=== PATIENT | male | born 1960 | race Caucasian/White ===

== ENCOUNTER 2022-06-13 22:24 | Emergency (ER) | payer OTHER ==
[~2022-06-13] VITALS: Ht 177.8 cm; Wt 113.0 kg
[2022-06-14 00:28] VITALS: BP 142/84
== END 2022-06-14 03:26 | disposition home or self-care (01) ==
LOC: ER 22:24
DX: E11.649 Type 2 diabetes mellitus with hypoglycemia without coma (principal); R53.1 Weakness; T38.3X5A Adverse effect of insulin and oral hypoglycemic [antidiabetic] drugs, initial encounter; Y92.89 Other specified places as the place of occurrence of the external cause; R03.0 Elevated blood-pressure reading, without diagnosis of hypertension; I48.20 Chronic atrial fibrillation, unspecified; Z79.4 Long term (current) use of insulin; Z79.01 Long term (current) use of anticoagulants
CPT/HCPCS: 82962; 99283

== ENCOUNTER 2025-03-30 13:10 | Inpatient (IN) | payer OTHER ==
[~2025-03-30] VITALS: Ht 180.3 cm; Wt 146.5 kg
[2025-03-30 13:57] LABS: BASOPHILS % 0.7 % (0.0-2.0); EOSINOPHILS % 0.2 % (0.0-5.0); HEMATOCRIT. 49.2 % (42.0-52.0); HEMOGLOBIN. 14.8 g/dL (14.0-18.0); LYMPHOCYTES % 16.2 % (20.0-50.0); MEAN CORPUSCULAR HEMOGLOBIN 26.9 pg (28.0-32.0); MEAN CORPUSCULAR HGB CONC 30.1 g/dL (31.0-37.0); MEAN CORPUSCULAR VOLUME 89.3 fL (80.0-94.0); MEAN PLATELET VOLUME 9.3 fl (7.4-10.4); MONOCYTES % 7.4 % (2.0-8.0); NEUTROPHILS % 75.5 % (40.0-76.0); PLATELET 201 x1000/uL (130-400); RED BLOOD CELL COUNT 5.51 mill/uL (4.7-6.1); RED CELL DISTRIBUTION WIDTH 26.1 % (11.6-14.6)
[2025-03-30 14:03] LABS: ADD RBC MORPHOLOGY YES; DIFFERENTIAL COMMENT 1
[2025-03-30 14:07] LABS: CARBON DIOXIDE 18 mEq/L (21-32); CHLORIDE 118 mEq/L (98-107); POTASSIUM 5.7 mEq/L (3.5-5.1); SODIUM 151 mEq/L (136-145)
[2025-03-30 14:08] LABS: CALCIUM 10.1 mg/dL (8.7-10.4)
[2025-03-30 14:13] LABS: CREATININE 3.1 mg/dL (0.6-1.3); GLUCOSE 162 mg/dL (70-105); UREA NITROGEN BLOOD 49 mg/dL (9-23)
[2025-03-30 14:15] LABS: CREATINE KINASE 208 IU/L (46-171)
[2025-03-30 14:31] LABS: ANISOCYTOSIS 3+; PLATELET ESTIMATE NORMAL
[2025-03-30 14:33] LABS: TROPONIN I HIGH SENSITIVITY 642 ng/L (3.0-53)
[2025-03-30 14:45] LABS: INR 1.5; PROTHROMBIN TIME 15.1 sec (9.6-11.0)
[2025-03-30] MEDS: DEXTROSE 50% WATER 50ML SYRINGE IV ONE (14:56)
[2025-03-30] MEDS: SODIUM BICARBONATE 8.4% 50MEQ/50ML SYR IV ONE (14:57)
[2025-03-30] MEDS: CLOPIDOGREL 75MG TABLET PO ONE (14:57)
[2025-03-30] MEDS: SODIUM ZIRCONIUM CYCLOSILICATE 10GM/PACKET PO ONE (14:57)
[2025-03-30] MEDS: ASPIRIN 325MG EC TABLET PO ONE (14:57)
[2025-03-30] MEDS: FUROSEMIDE 100MG/10ML VIAL IV STA (14:57)
[2025-03-30] MEDS: INSULIN REGULAR (HUMULIN R) 1000UNITS/10ML VIAL IV ONE (14:58)
[2025-03-30] MEDS: ALBUTEROL (0.083%) 2.5MG/3ML NEB HHN ONE (16:05)
[2025-03-30 16:25] VITALS: PULSE 101; RESP 22; O2SAT 98
[2025-03-30] MEDS: ISOSORBIDE MONONITRATE 60MG TABLET SR 24HR PO ONE (17:48)
[2025-03-30 23:14] VITALS: BP 176/114; PULSE 92; RESP 16; TEMP 36.5
[2025-03-31] VITALS (11 sets, daily range): BP systolic 145–178; BP diastolic 99–132; PULSE 90–106; RESP 14–19; TEMP 36.2–36.6; O2SAT 93–100
[2025-03-31] MEDS ORDERED: DEXTROSE 50% WATER 50ML SYRINGE IV PRN (01:45)
[2025-03-31] MEDS ORDERED: DOCUSATE SODIUM 100MG CAPSULE PO PRN (01:45)
[2025-03-31] MEDS ORDERED: ACETAMINOPHEN 325MG TABLET PO PRN ×2 (01:45)
[2025-03-31] MEDS ORDERED: IPRATROPIUM/ALBUTEROL 0.5-3(2.5)MG/3ML NEB HHN PRN (01:45)
[2025-03-31] MEDS ORDERED: ONDANSETRON HCL 4MG/2ML INJ IV PRN (01:45)
[2025-03-31] MEDS: LABETALOL 5MG/ML 4ML INJ IV PRN (02:13)
[2025-03-31] MEDS: ENOXAPARIN 150MG/ML SYR SUBCUT SCH (02:50)
[2025-03-31 06:42] LABS: BASOPHILS % 0.8 % (0.0-2.0); EOSINOPHILS % 0.7 % (0.0-5.0); HEMATOCRIT. 44.1 % (42.0-52.0); HEMOGLOBIN. 13.1 g/dL (14.0-18.0); LYMPHOCYTES % 17.7 % (20.0-50.0); MEAN CORPUSCULAR HEMOGLOBIN 26.7 pg (28.0-32.0); MEAN CORPUSCULAR HGB CONC 29.7 g/dL (31.0-37.0); MEAN CORPUSCULAR VOLUME 89.8 fL (80.0-94.0); MEAN PLATELET VOLUME 9.2 fl (7.4-10.4); MONOCYTES % 6.6 % (2.0-8.0); NEUTROPHILS % 74.2 % (40.0-76.0); PLATELET 152 x1000/uL (130-400); RED BLOOD CELL COUNT 4.91 mill/uL (4.7-6.1); RED CELL DISTRIBUTION WIDTH 25.6 % (11.6-14.6); WHITE BLOOD COUNT 9.7 x1000/uL (4.5-11.0)
[2025-03-31 06:55] LABS: CHLORIDE 117 mEq/L (98-107); SODIUM 154 mEq/L (136-145)
[2025-03-31 06:56] LABS: CARBON DIOXIDE 23 mEq/L (21-32)
[2025-03-31 07:01] LABS: CREATININE 2.9 mg/dL (0.6-1.3); GLUCOSE 138 mg/dL (70-105); UREA NITROGEN BLOOD 52 mg/dL (9-23)
[2025-03-31 07:03] LABS: ALANINE AMINOTRANSFERASE 77 IU/L (10-49); ALBUMIN 3.9 g/dL (3.2-4.8); ASPARTATE AMINOTRANSFERASE 91 IU/L (<34); PROTEIN TOTAL 6.8 g/dL (6.0-8.3)
[2025-03-31 07:09] LABS: DIFFERENTIAL COMMENT 1
[2025-03-31 07:10] LABS: HEPATITIS B SURFACE ANTIGEN NEGATIVE (Negative)
[2025-03-31] MEDS: BLOOD SUGAR DIAGNOSTIC STRIP TEST SCH (07:30)
[2025-03-31 07:31] LABS: HEPATITIS C AB NON REACTIVE (Neg) (Negative)
[2025-03-31] MEDS: INSULIN LISPRO 100 UNITS/ML SUBCUT SCH (08:00)
[2025-03-31 08:36] LABS: POTASSIUM 3.4 mEq/L (3.5-5.1)
[2025-03-31 08:40] LABS: TROPONIN I HIGH SENSITIVITY 639 ng/L (3.0-53)
[2025-03-31 08:43] LABS: BG BASE EXCESS -4.3 mmol/L (-2.0-3.0); BG CARBOXYHEMOGLOBIN 1.4 % (0.5-1.5); BG DEOXYHEMOGLOBIN 1.3 % (0.0-5.0); BG FRACTION INSPIRED OXYGEN 42; BG HCO3 ACT 22.4 mmol/L (21.0-28.0); BG METHEMOGLOBIN 0.2 % (0.5-1.5); BG OXYGEN SATURATION 98.7 % (94.0-98.0); BG OXYHEMOGLOBIN 97.1 % (94.0-98.0); BG PCO2 47.6 mmHg (35.0-48.0); BG PH 7.291 (7.350-7.450); BG PO2 126.4 mmHg (83.0-108.0); BG SAMPLE SITE RIGHT RADIAL; BG TOTAL HEMOGLOBIN 13.2 g/dL (13.5-17.5); BG VENT MODE NASAL CANNULA
[2025-03-31] MEDS: AMLODIPINE 5MG TABLET PO SCH ×2 (09:31→18:43)
[2025-03-31] MEDS: DEXTROSE 5% WATER 1,000 ML IV SCH (17:38)
[2025-03-31 21:02] LABS: PHOSPHORUS 3.2 mg/dL (2.5-4.9)
[2025-03-31 21:05] LABS: TROPONIN I HIGH SENSITIVITY 343 ng/L (3.0-53)
[2025-03-31] MEDS: DILTIAZEM HCL 30MG TABLET PO SCH (21:43)
[2025-03-31] MEDS: HYDRALAZINE HCL 25MG TABLET PO SCH (21:43)
[2025-04-01] VITALS (13 sets, daily range): BP systolic 147–179; BP diastolic 91–116; PULSE 81–101; RESP 15–21; TEMP 35.4–36.4; O2SAT 90–98
[2025-04-01 06:05] LABS: BASOPHILS % 0.9 % (0.0-2.0); EOSINOPHILS % 3.8 % (0.0-5.0); HEMOGLOBIN. 12.4 g/dL (14.0-18.0); LYMPHOCYTES % 16.5 % (20.0-50.0); MEAN CORPUSCULAR HEMOGLOBIN 26.7 pg (28.0-32.0); MEAN CORPUSCULAR HGB CONC 30.2 g/dL (31.0-37.0); MEAN CORPUSCULAR VOLUME 88.5 fL (80.0-94.0); MEAN PLATELET VOLUME 9.2 fl (7.4-10.4); MONOCYTES % 7.1 % (2.0-8.0); NEUTROPHILS % 71.7 % (40.0-76.0); PLATELET 133 x1000/uL (130-400); RED BLOOD CELL COUNT 4.64 mill/uL (4.7-6.1); RED CELL DISTRIBUTION WIDTH 25.5 % (11.6-14.6); WHITE BLOOD COUNT 8.1 x1000/uL (4.5-11.0)
[2025-04-01 06:12] LABS: CHLORIDE 115 mEq/L (98-107); POTASSIUM 3.1 mEq/L (3.5-5.1); SODIUM 150 mEq/L (136-145)
[2025-04-01 06:13] LABS: CALCIUM 9.5 mg/dL (8.7-10.4); CARBON DIOXIDE 25 mEq/L (21-32)
[2025-04-01 06:18] LABS: CREATININE 2.5 mg/dL (0.6-1.3); GLUCOSE 150 mg/dL (70-105); TRIGLYCERIDE 87 mg/dL (0-150); UREA NITROGEN BLOOD 46 mg/dL (9-23)
[2025-04-01 06:19] LABS: LDL CHOLESTEROL 37 mg/dL (5-100)
[2025-04-01 06:20] LABS: CHOLESTEROL 78 mg/dL (<200); HDL CHOLESTEROL 24 mg/dL (>55)
[2025-04-01 06:22] LABS: THYROID STIMULATING HORMONE 0.86 uIU/mL (0.55-4.78)
[2025-04-01 06:30] LABS: DIFFERENTIAL COMMENT 1
[2025-04-01 06:31] LABS: ADD RBC MORPHOLOGY NO
[2025-04-01 06:45] LABS: TROPONIN I HIGH SENSITIVITY 273 ng/L (3.0-53)
[2025-04-01] MEDS: POTASSIUM CHLORIDE 20MEQ/PACKET PO SCH (11:10)
[2025-04-01] MEDS: FUROSEMIDE 40MG/4ML VIAL IVP SCH ×2 (15:25→21:00)
[2025-04-01] MEDS: DILTIAZEM HCL 30MG TABLET PO SCH (18:14)
[2025-04-01] MEDS: POTASSIUM CHLORIDE 20MEQ TABLET SR PO SCH (20:54)
[2025-04-01] MEDS ORDERED: POTASSIUM CHLORIDE 20MEQ TABLET SR PO SCH (21:00)
[2025-04-02] VITALS (11 sets, daily range): BP systolic 120–156; BP diastolic 75–108; PULSE 87–95; RESP 16–27; TEMP 35.6–36.4; O2SAT 93–99
[2025-04-02 06:23] LABS: BASOPHILS % 0.8 % (0.0-2.0); EOSINOPHILS % 3.1 % (0.0-5.0); HEMOGLOBIN. 12.8 g/dL (14.0-18.0); LYMPHOCYTES % 16.7 % (20.0-50.0); MEAN CORPUSCULAR HGB CONC 31.2 g/dL (31.0-37.0); MEAN CORPUSCULAR VOLUME 86.5 fL (80.0-94.0); MONOCYTES % 6.5 % (2.0-8.0); NEUTROPHILS % 72.9 % (40.0-76.0); PLATELET 146 x1000/uL (130-400); RED BLOOD CELL COUNT 4.74 mill/uL (4.7-6.1); RED CELL DISTRIBUTION WIDTH 25.1 % (11.6-14.6); WHITE BLOOD COUNT 8.1 x1000/uL (4.5-11.0)
[2025-04-02 06:33] LABS: DIFFERENTIAL COMMENT 1
[2025-04-02 06:38] LABS: CHLORIDE 114 mEq/L (98-107); POTASSIUM 3.5 mEq/L (3.5-5.1); SODIUM 152 mEq/L (136-145)
[2025-04-02 06:39] LABS: CALCIUM 9.9 mg/dL (8.7-10.4); CARBON DIOXIDE 28 mEq/L (21-32)
[2025-04-02 06:44] LABS: CREATININE 2.2 mg/dL (0.6-1.3); GLUCOSE 149 mg/dL (70-105); UREA NITROGEN BLOOD 40 mg/dL (9-23)
[2025-04-02 06:49] LABS: TROPONIN I HIGH SENSITIVITY 155 ng/L (3.0-53)
[2025-04-02] MEDS: POTASSIUM CHLORIDE 20MEQ TABLET SR PO SCH (08:54)
[2025-04-02] MEDS: EMPAGLIFLOZIN 10MG TABLET PO SCH (08:54)
[2025-04-02] MEDS ORDERED: [UNRECOGNIZED DRUG - CODE] SUBCUT (15:47)
[2025-04-02] MEDS ORDERED: FURO10VI3 IVP (15:47)
[2025-04-02] MEDS ORDERED: DILT30TA3 PO (15:47)
[2025-04-02] MEDS ORDERED: EMPA10TA PO (15:47)
[2025-04-02] MEDS ORDERED: HYDR25TA78 PO (15:47)
== END 2025-04-02 17:50 | disposition short-term general hospital (02) | DRG 291 ==
LOC: ER 13:34 → EDBEDREQTM 19:12 → EDBEDREQ 19:12 → ENRESERV 19:26 → 5EST 21:54
PROVIDERS: ADMIT Family Medicine Adult Medicine; ATTEND Family Medicine Adult Medicine
PROC: 5A09357 Assistance with Respiratory Ventilation, Less than 24 Consecutive Hours, Continuous Positive Airway Pressure (ICD-10-PCS; principal; 2025-04-02)
DX: I13.0 Hypertensive heart and chronic kidney disease with heart failure and stage 1 through stage 4 chronic kidney disease, or unspecified chronic kidney disease (principal); I50.21 Acute systolic (congestive) heart failure; J96.01 Acute respiratory failure with hypoxia; M62.82 Rhabdomyolysis; N17.9 Acute kidney failure, unspecified; E87.0 Hyperosmolality and hypernatremia; I31.39 Other pericardial effusion (noninflammatory); R79.89 Other specified abnormal findings of blood chemistry; E87.5 Hyperkalemia; G47.33 Obstructive sleep apnea (adult) (pediatric); E11.22 Type 2 diabetes mellitus with diabetic chronic kidney disease; N18.9 Chronic kidney disease, unspecified; R74.01 Elevation of levels of liver transaminase levels; E87.6 Hypokalemia; I48.91 Unspecified atrial fibrillation; I42.9 Cardiomyopathy, unspecified; I69.398 Other sequelae of cerebral infarction
CPT/HCPCS: 36415; 36600; 71045; 72170; 76770; 80048; 80053; 80061; 82375; 82550; 82805; 82962; 83036; 83735; 83880; 84100; 84443; 84484; 85025; 86705; 86850; 86900; 87340; 93005; 93306; 93923; 94070; 94640; 94660; 99285; A4606; J1650; J1815; J1940; J3490; J7070

== ENCOUNTER 2025-04-17 12:32 | Inpatient (IN) | payer OTHER ==
[~2025-04-17] VITALS: Ht 188 cm; Wt 119.1 kg
[~2025-04-17 12:32] MED LIST: DILT30TA3 PO; EMPA10TA PO; FURO10VI3 IVP; HYDR25TA78 PO; [UNRECOGNIZED DRUG - CODE] SUBCUT
[2025-04-17 13:58] LABS: ADD RBC MORPHOLOGY YES; DIFFERENTIAL COMMENT 1; EOSINOPHILS % 2.5 % (0.0-5.0); HEMATOCRIT. 32.7 % (42.0-52.0); HEMOGLOBIN. 10.3 g/dL (14.0-18.0); LYMPHOCYTES % 19.4 % (20.0-50.0); MEAN CORPUSCULAR HEMOGLOBIN 27.1 pg (28.0-32.0); MEAN CORPUSCULAR HGB CONC 31.6 g/dL (31.0-37.0); MEAN CORPUSCULAR VOLUME 85.8 fL (80.0-94.0); MONOCYTES % 7.8 % (2.0-8.0); NEUTROPHILS % 69.3 % (40.0-76.0); PLATELET 235 x1000/uL (130-400); RED BLOOD CELL COUNT 3.81 mill/uL (4.7-6.1); RED CELL DISTRIBUTION WIDTH 23.3 % (11.6-14.6); WHITE BLOOD COUNT 5.9 x1000/uL (4.5-11.0)
[2025-04-17 14:06] LABS: CARBON DIOXIDE 21 mEq/L (21-32); CHLORIDE 110 mEq/L (98-107); POTASSIUM 3.6 mEq/L (3.5-5.1); SODIUM 141 mEq/L (136-145)
[2025-04-17 14:12] LABS: ETHANOL BLOOD < 10 mg/dL (<10); GLUCOSE 74 mg/dL (70-105); TROPONIN I HIGH SENSITIVITY 23 ng/L (3.0-53); UREA NITROGEN BLOOD 20 mg/dL (9-23)
[2025-04-17 14:13] LABS: ACETAMINOPHEN < 2 ug/mL (10-30); ALANINE AMINOTRANSFERASE 31 IU/L (10-49); ALBUMIN 4.1 g/dL (3.2-4.8); ASPARTATE AMINOTRANSFERASE 27 IU/L (<34)
[2025-04-17 14:14] LABS: BILIRUBIN DIRECT 0.5 mg/dL (<=3.0); BILIRUBIN TOTAL 0.8 mg/dL (0.1-1.0); PROTEIN TOTAL 6.7 g/dL (6.0-8.3)
[2025-04-17 14:31] LABS: ANISOCYTOSIS 3+; GIANT PLATELETS FEW
[2025-04-17 14:32] LABS: HYPOCHROMASIA 1+; PLATELET ESTIMATE NORMAL
[2025-04-17 16:01] LABS: TROPONIN I HIGH SENSITIVITY 18 ng/L (3.0-53)
[2025-04-17] MEDS: FUROSEMIDE 40MG/4ML VIAL IVP STA (16:10)
[2025-04-17 20:00] VITALS: BP 128/75; PULSE 70; RESP 19; TEMP 36.4; O2SAT 100
[2025-04-17 21:35] VITALS: BP 128/75; PULSE 70; RESP 19; TEMP 36.5
[2025-04-17] MEDS ORDERED: ONDANSETRON HCL 4MG/2ML INJ IV PRN (23:30)
[2025-04-17] MEDS ORDERED: IPRATROPIUM/ALBUTEROL 0.5-3(2.5)MG/3ML NEB HHN PRN (23:30)
[2025-04-17] MEDS ORDERED: ACETAMINOPHEN 325MG TABLET PO PRN ×2 (23:30)
[2025-04-17] MEDS ORDERED: DEXTROSE 50% WATER 50ML SYRINGE IV PRN (23:45)
[2025-04-17] MEDS ORDERED: APIXABAN 5 MG TABLET PO SCH (23:45)
[2025-04-18] VITALS (8 sets, daily range): BP systolic 136–167; BP diastolic 89–106; PULSE 71–86; RESP 15–19; TEMP 36.1–36.6; O2SAT 95–100
[2025-04-18] MEDS ORDERED: DILTIAZEM HCL 30MG TABLET PO SCH
[2025-04-18 00:30] LABS: PHOSPHORUS 2.9 mg/dL (2.5-4.9)
[2025-04-18] MEDS: BLOOD SUGAR DIAGNOSTIC STRIP TEST SCH (07:20)
[2025-04-18] MEDS: INSULIN LISPRO 100 UNITS/ML SUBCUT SCH (07:50)
[2025-04-18] MEDS: FUROSEMIDE 40MG/4ML VIAL IV SCH (09:04)
[2025-04-18] MEDS: APIXABAN 5 MG TABLET PO SCH (09:04)
[2025-04-18] MEDS: IPRATROPIUM/ALBUTEROL 0.5-3(2.5)MG/3ML NEB HHN SCH (10:01)
[2025-04-18 10:21] LABS: BASOPHILS % 1.8 % (0.0-2.0); HEMATOCRIT. 33.3 % (42.0-52.0); HEMOGLOBIN. 10.6 g/dL (14.0-18.0); MEAN CORPUSCULAR HEMOGLOBIN 27.3 pg (28.0-32.0); MEAN CORPUSCULAR HGB CONC 31.8 g/dL (31.0-37.0); MEAN PLATELET VOLUME 9.2 fl (7.4-10.4); MONOCYTES % 7.1 % (2.0-8.0); NEUTROPHILS % 64.1 % (40.0-76.0); PLATELET 236 x1000/uL (130-400); RED BLOOD CELL COUNT 3.87 mill/uL (4.7-6.1); RED CELL DISTRIBUTION WIDTH 22.9 % (11.6-14.6); WHITE BLOOD COUNT 5.3 x1000/uL (4.5-11.0)
[2025-04-18 10:27] LABS: DIFFERENTIAL COMMENT 1
[2025-04-18 10:28] LABS: ADD RBC MORPHOLOGY NO
[2025-04-18 10:45] LABS: CREATINE KINASE MB FRACTION 2.9 ng/mL (0.5-3.6)
[2025-04-18 10:47] LABS: POTASSIUM 3.7 mEq/L (3.5-5.1)
[2025-04-18 10:53] LABS: CREATININE 1.9 mg/dL (0.6-1.3)
[2025-04-18 15:31] LABS: BG BASE EXCESS -6.1 mmol/L (-2.0-3.0); BG CARBOXYHEMOGLOBIN 0.7 % (0.5-1.5); BG DEOXYHEMOGLOBIN 4.3 % (0.0-5.0); BG FRACTION INSPIRED OXYGEN 28; BG HCO3 ACT 18.1 mmol/L (21.0-28.0); BG METHEMOGLOBIN 0.3 % (0.5-1.5); BG OXYGEN SATURATION 95.7 % (94.0-98.0); BG OXYHEMOGLOBIN 94.7 % (94.0-98.0); BG PCO2 31.5 mmHg (35.0-48.0); BG PH 7.378 (7.350-7.450); BG PO2 81.6 mmHg (83.0-108.0); BG SAMPLE SITE RIGHT RADIAL; BG TOTAL HEMOGLOBIN 11.1 g/dL (13.5-17.5); BG VENT MODE NASAL CANNULA
[2025-04-18] MEDS: CLONIDINE 0.1MG TABLET PO PRN (15:46)
[2025-04-18 17:08] LABS: CREATINE KINASE MB FRACTION 2.5 ng/mL (0.5-3.6)
== END 2025-04-18 19:43 | disposition short-term general hospital (02) | DRG 189 ==
LOC: ER 12:32 → EDBEDREQ 13:56 → 6WST 16:05 → EDBEDREQ 17:44
PROVIDERS: ADMIT Internal Medicine; ATTEND Internal Medicine
DX: J96.01 Acute respiratory failure with hypoxia (principal); G92.8 Other toxic encephalopathy; I50.23 Acute on chronic systolic (congestive) heart failure; I13.0 Hypertensive heart and chronic kidney disease with heart failure and stage 1 through stage 4 chronic kidney disease, or unspecified chronic kidney disease; J81.1 Chronic pulmonary edema; N17.9 Acute kidney failure, unspecified; E11.22 Type 2 diabetes mellitus with diabetic chronic kidney disease; N18.9 Chronic kidney disease, unspecified; J96.02 Acute respiratory failure with hypercapnia; R62.7 Adult failure to thrive; E11.9 Type 2 diabetes mellitus without complications; G47.33 Obstructive sleep apnea (adult) (pediatric); I48.91 Unspecified atrial fibrillation; Z68.33 Body mass index [BMI] 33.0-33.9, adult; Z79.01 Long term (current) use of anticoagulants; Z79.84 Long term (current) use of oral hypoglycemic drugs; Z79.899 Other long term (current) drug therapy; Z86.73 Personal history of transient ischemic attack (TIA), and cerebral infarction without residual deficits
CPT/HCPCS: 36415; 36600; 71045; 80048; 80076; 80307; 80320; 80329; 82375; 82550; 82553; 82805; 82962; 83036; 83735; 83880; 84100; 84484; 85025; 93005; 93970; 94640; 99291; A4606; J1940; G0480

== ENCOUNTER 2025-04-29 11:33 | Inpatient (IN) | payer MEDICARE, OTHER ==
[~2025-04-29] VITALS: Ht 177.8 cm; Wt 109.8 kg
[2025-04-29] MEDS: PANTOPRAZOLE SODIUM 40 MG/VIAL IV ONE (12:06)
[2025-04-29 12:24] LABS: BASOPHILS % 1.3 % (0.0-2.0); EOSINOPHILS % 1.7 % (0.0-5.0); HEMATOCRIT. 25.9 % (42.0-52.0); MEAN CORPUSCULAR HGB CONC 30.9 g/dL (31.0-37.0); MEAN CORPUSCULAR VOLUME 90.6 fL (80.0-94.0); MEAN PLATELET VOLUME 9.2 fl (7.4-10.4); MONOCYTES % 4.9 % (2.0-8.0); NEUTROPHILS % 66.1 % (40.0-76.0); PLATELET 164 x1000/uL (130-400); RED BLOOD CELL COUNT 2.86 mill/uL (4.7-6.1); RED CELL DISTRIBUTION WIDTH 22.7 % (11.6-14.6)
[2025-04-29 12:29] LABS: ADD RBC MORPHOLOGY YES; DIFFERENTIAL COMMENT 1
[2025-04-29 12:35] LABS: CHLORIDE 116 mEq/L (98-107); POTASSIUM 3.9 mEq/L (3.5-5.1); SODIUM 152 mEq/L (136-145)
[2025-04-29 12:36] LABS: CALCIUM 8.8 mg/dL (8.7-10.4); CARBON DIOXIDE 19 mEq/L (21-32)
[2025-04-29 12:40] LABS: TROPONIN I HIGH SENSITIVITY 23 ng/L (3.0-53)
[2025-04-29 12:41] LABS: CREATININE 1.6 mg/dL (0.6-1.3); ETHANOL BLOOD < 10 mg/dL (<10); GLUCOSE 177 mg/dL (70-105); UREA NITROGEN BLOOD 37 mg/dL (9-23)
[2025-04-29 12:43] LABS: ALANINE AMINOTRANSFERASE 10 IU/L (10-49); ASPARTATE AMINOTRANSFERASE 22 IU/L (<34); BILIRUBIN DIRECT 0.3 mg/dL (<=3.0); BILIRUBIN TOTAL 0.5 mg/dL (0.1-1.0); CREATINE KINASE 38 IU/L (46-171)
[2025-04-29 12:57] LABS: INR 1.6
[2025-04-29 13:04] LABS: LACTIC ACID 6.5 mmol/L (0.4-2.0)
[2025-04-29 13:18] LABS: ANISOCYTOSIS 3+; HYPOCHROMASIA 1+; PLATELET ESTIMATE NORMAL
[2025-04-29 17:07] LABS: BASOPHILS % 0.8 % (0.0-2.0); EOSINOPHILS % 0.7 % (0.0-5.0); HEMATOCRIT. 23.5 % (42.0-52.0); HEMOGLOBIN. 7.1 g/dL (14.0-18.0); LYMPHOCYTES % 20.1 % (20.0-50.0); MEAN CORPUSCULAR HEMOGLOBIN 27.2 pg (28.0-32.0); MEAN CORPUSCULAR HGB CONC 30.3 g/dL (31.0-37.0); MEAN CORPUSCULAR VOLUME 89.9 fL (80.0-94.0); MONOCYTES % 6.5 % (2.0-8.0); NEUTROPHILS % 71.9 % (40.0-76.0); PLATELET 154 x1000/uL (130-400); RED BLOOD CELL COUNT 2.61 mill/uL (4.7-6.1); RED CELL DISTRIBUTION WIDTH 22.5 % (11.6-14.6); WHITE BLOOD COUNT 9.1 x1000/uL (4.5-11.0)
[2025-04-29 17:08] LABS: ADD RBC MORPHOLOGY YES; DIFFERENTIAL COMMENT 1
[2025-04-29] MEDS ORDERED: HYDRALAZINE 20MG/ML VIAL IV PRN (17:15)
[2025-04-29] MEDS ORDERED: IPRATROPIUM/ALBUTEROL 0.5-3(2.5)MG/3ML NEB NEB PRN (17:15)
[2025-04-29] MEDS ORDERED: MORPHINE SULFATE 2 MG/ML INJ (NOT FOR IM USE) IV PRN (17:15)
[2025-04-29] MEDS ORDERED: ONDANSETRON HCL 4MG/2ML INJ IV PRN (17:15)
[2025-04-29] MEDS ORDERED: ACETAMINOPHEN 325MG TABLET PO PRN (17:15)
[2025-04-29] MEDS ORDERED: DILTIAZEM HCL 5MG/ML 5ML VIAL IV PRN (17:15)
[2025-04-29] MEDS ORDERED: NALOXONE HCL 0.4MG/ML VIAL IV PRN (17:30)
[2025-04-29] MEDS: FUROSEMIDE 40MG/4ML VIAL IVP SCH (17:55)
[2025-04-29 20:00] VITALS: BP 166/87; PULSE 72; RESP 19; TEMP 36.7; O2SAT 96
[2025-04-29 21:39] VITALS: BP 129/70; PULSE 85; RESP 19; TEMP 36.3
[2025-04-29 21:41] LABS: HEMATOCRIT 27.2 % (42.0-52.0); HEMOGLOBIN 8.4 g/dL (14.0-18.0)
[2025-04-30] VITALS: BP 156/77; PULSE 87; RESP 19; TEMP 36.3; O2SAT 99
[2025-04-30 04:00] VITALS: BP 149/85; PULSE 89; RESP 18; TEMP 36.9; O2SAT 96
[2025-04-30 08:08] VITALS: BP 158/84; PULSE 86; RESP 18; TEMP 36.6; O2SAT 96
[2025-04-30] MEDS: PANTOPRAZOLE SODIUM 40 MG/VIAL IV SCH (09:00)
[2025-04-30 11:55] VITALS: BP 142/68; PULSE 86; RESP 18; TEMP 36.8; O2SAT 96
[2025-04-30] MEDS: MAGNESIUM 2 G PREMIX 50 ML IV ONE (15:21)
[2025-04-30 16:00] VITALS: BP 139/84; PULSE 99; RESP 18; TEMP 36.5; O2SAT 98
[2025-04-30] MEDS: SUCRALFATE 1G TABLET PO SCH (17:39)
[2025-04-30 17:46] LABS: BASOPHILS % 1.1 % (0.0-2.0); EOSINOPHILS % 3.3 % (0.0-5.0); HEMATOCRIT. 26.5 % (42.0-52.0); HEMOGLOBIN. 8.5 g/dL (14.0-18.0); MEAN CORPUSCULAR HEMOGLOBIN 28.1 pg (28.0-32.0); MEAN CORPUSCULAR HGB CONC 31.9 g/dL (31.0-37.0); MEAN CORPUSCULAR VOLUME 88.1 fL (80.0-94.0); MEAN PLATELET VOLUME 8.8 fl (7.4-10.4); MONOCYTES % 5.6 % (2.0-8.0); PLATELET 179 x1000/uL (130-400); RED BLOOD CELL COUNT 3.01 mill/uL (4.7-6.1); RED CELL DISTRIBUTION WIDTH 22.1 % (11.6-14.6)
[2025-04-30 17:47] LABS: DIFFERENTIAL COMMENT 1
[2025-04-30 18:00] LABS: CHLORIDE 112 mEq/L (98-107); SODIUM 151 mEq/L (136-145)
[2025-04-30 18:01] LABS: CALCIUM 10.1 mg/dL (8.7-10.4); CARBON DIOXIDE 24 mEq/L (21-32)
[2025-04-30 18:02] LABS: INR 1.4; PROTHROMBIN TIME 14.4 sec (9.6-11.0)
[2025-04-30 18:06] LABS: GLUCOSE 139 mg/dL (70-105); UREA NITROGEN BLOOD 39 mg/dL (9-23)
[2025-04-30 18:08] LABS: ALBUMIN 3.7 g/dL (3.2-4.8); FERRITIN 79 ng/mL (22-322); FOLIC ACID (FOLATE) SERUM 12.17 ng/mL (>5.38); TOTAL IRON BINDING CAPACITY 179 ug/dl (250-425); VITAMIN B12 SERUM 654 pg/mL (211-911)
[2025-04-30 18:09] LABS: ALANINE AMINOTRANSFERASE 16 IU/L (10-49); ASPARTATE AMINOTRANSFERASE 25 IU/L (<34); BILIRUBIN TOTAL 0.8 mg/dL (0.1-1.0)
[2025-04-30 18:16] LABS: CREATININE 2.3 mg/dL (0.6-1.3)
[2025-04-30 18:17] LABS: IRON 32 ug/dL (65-175)
[2025-04-30 18:34] VITALS: BP 139/84; PULSE 99; TEMP 97.7; O2SAT 98
== END 2025-04-30 20:35 | disposition short-term general hospital (02) | DRG 377 ==
LOC: ER 11:33 → EDBEDREQ 12:05 → 8WST 16:37 → EDBEDREQ 16:40 → ENRESERV 17:06 → ER 17:50
PROVIDERS: ADMIT Internal Medicine; ATTEND Internal Medicine
PROC: 30233N1 Transfusion of Nonautologous Red Blood Cells into Peripheral Vein, Percutaneous Approach (ICD-10-PCS; principal; 2025-04-29)
DX: K92.1 Melena (principal); I50.23 Acute on chronic systolic (congestive) heart failure; I13.0 Hypertensive heart and chronic kidney disease with heart failure and stage 1 through stage 4 chronic kidney disease, or unspecified chronic kidney disease; I42.0 Dilated cardiomyopathy; I47.20 Ventricular tachycardia, unspecified; N17.9 Acute kidney failure, unspecified; D64.9 Anemia, unspecified; I48.0 Paroxysmal atrial fibrillation; E88.09 Other disorders of plasma-protein metabolism, not elsewhere classified; G47.33 Obstructive sleep apnea (adult) (pediatric); N18.9 Chronic kidney disease, unspecified; E11.22 Type 2 diabetes mellitus with diabetic chronic kidney disease; Z79.82 Long term (current) use of aspirin; Z86.73 Personal history of transient ischemic attack (TIA), and cerebral infarction without residual deficits
CPT/HCPCS: 36415; 71045; 80048; 80053; 80076; 80320; 82550; 82607; 82728; 82746; 83540; 83550; 83605; 83735; 83880; 84145; 84484; 85014; 85018; 85025; 85044; 86850; 86900; 86920; 93005; 93970; 99291; A4606; J1940; J2470; J3475; P9016; G0480